=== PATIENT | female | born 1960 | race Caucasian/White ===

== ENCOUNTER 2017-09-19 06:14 | Day surgery (SDC) | payer BC ==
[2017-09-18 13:47] VITALS: BMI 26.6
[2017-09-19] VITALS (16 sets, daily range): BP systolic 125–164; BP diastolic 64–100; PULSE 66–86; RESP 11–28; Ht 172.7 cm; Wt 81.5 kg
[~2017-09-19] VITALS: Ht 172.7 cm; Wt 81.5 kg
[2017-09-19] MEDS ORDERED: LISI1TAB8 PO (06:42)
[2017-09-19] MEDS ORDERED: BUPIVACAINE 0.25%/EPI (SDV) 30 ML INJ ONE (08:06)
[2017-09-19] MEDS ORDERED: PROPOFOL 100 ML ONE (08:08)
[2017-09-19] MEDS ORDERED: morphine SULFATE/PF (10 MG/10 ML) INJ ONE (08:25)
[2017-09-19] MEDS ORDERED: DEXAMETHASONE 4 MG/ML 1 ML INJ ONE (08:45)
[2017-09-19] MEDS ORDERED: ROCURONIUM 50 MG INJ ONE (08:45)
[2017-09-19] MEDS ORDERED: TRIAMCINOLONE ACET 40 MG/ML INJ ONE (09:32)
[2017-09-19] MEDS ORDERED: SUGAMMADEX SODIUM 200 MG/2 ML VIAL IV ONE (09:33)
[2017-09-19] MEDS ORDERED: ONDANSETRON 4 MG INJ ONE (09:34)
[2017-09-19] MEDS ORDERED: CEFAZOLIN 1 GM INJ ONE (09:37)
[2017-09-19] MEDS ORDERED: LIDOCAINE 2% (SDV) 5 ML INJ ONE (09:38)
[2017-09-19] MEDS ORDERED: HYDROmorphONE (0.2 MG/ML) 10ML SYG IV PRN ×3 (10:00)
[2017-09-19] MEDS ORDERED: DIPHENHYDRAMINE 50 MG INJ IV PRN (10:00)
[2017-09-19] MEDS ORDERED: hydrALAzine 20 MG INJ IV PRN (10:00)
[2017-09-19] MEDS ORDERED: ONDANSETRON 4 MG INJ IV PRN (10:00)
[2017-09-19] MEDS ORDERED: MEPERIDINE 25 MG INJ IV PRN (10:00)
[2017-09-19] MEDS ORDERED: ALBUTEROL 0.083% (NEB) 2.5 MG/3 ML AMP HHN PRN (10:00)
[2017-09-19] MEDS ORDERED: KETOROLAC 30 MG INJ IV PRN (10:00)
[2017-09-19] MEDS ORDERED: LABETALOL HCL 20MG INJ IV PRN (10:00)
[2017-09-19] MEDS ORDERED: FENTAnyl 50 MCG/ML VIAL IV PRN ×3 (10:00)
[2017-09-19] MEDS ORDERED: METOCLOPRAMIDE 10 MG INJ IV PRN (10:00)
[2017-09-19] MEDS ORDERED: OXYCODONE/ACETAMINOPHEN (5/325) TAB PO PRN ×2 (10:00)
[2017-09-19] MEDS ORDERED: EPHEDrine SULFATE 50 MG/5 ML SYG IV PRN (10:00)
--- NOTE | 2017-09-21 15:19 | OPR ---
DATE OF OPERATION: 09/19/2017 PREOPERATIVE DIAGNOSIS: Medial meniscus tear of the left knee, partial thickness tear ACL left knee, chondromalacia of left knee, mild, patellofemoral area. POSTOPERATIVE DIAGNOSIS: Tear of the medial meniscus, left knee. 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 Chondromalacia type 2 medial femoral condyle, partial thickness tear, ACL left knee. OPERATION PERFORMED: 1. Arthroscopic partial medial meniscectomy, left knee. 2. Chondroplasty of medial femoral condyle, left knee. 3. Chondroplasty patellofemoral left knee. 4. Partial anterior synovectomies left knee. 5. Diagnostic arthroscopy of left knee. INDICATIONS: Preoperative assessment in this 57-year-old female indicated that she had injury of her left knee dancing on 04/01/2017 with ongoing symptoms. She had an MRI of the left knee. Study suggested chondromalacia patellofemoral tear of medial meniscus and also suggestion for partial thickness tear rotator cuff. Clinically, no significant anteromedial instability identified. Anterior drawer sign was 0 to 1+, positive. No linear laxity identified. OPERATIVE PROCEDURE: She was brought to the operating room, placed on operative table in supine position. General anesthesia administered by Dr. Valdo Blue. The patient received 1 gram Ancef intravenously. Tourniquet cuff was placed in proximal portion of the right thigh. Prepping and draping of left lower extremity was done. Evaluation of left knee under anesthesia did not suggest linear laxity or limitation of range of motion. Anterior drawer sign was 0 to 1+, positive, Karli test negative. Prepping and draping of left lower extremity was done. Exsanguination done using elastic Esmarch bandage. Tourniquet was inflated to 275 mmHg. Diagnostic arthroscopy of left knee was done introducing inflow from superomedial portal. A 30 degree angled arthroscope introduced into the left knee from inferolateral portal, the knee was inspected patellofemoral relation was normal. Synovitic changes were present and chondromalacia patella identified with most significant chondromalacia in that area involved femoral groove. Medial compartment revealed tear of posterior horn and mid segment of medial meniscus and chondromalacia grade II and medial femoral condylar identified. ACL was inspected. Continuity was present, but there was what appeared to be thinning of ACL. Lateral compartment showed no tear, or lateral meniscus tear, but synovitis was present. Operative arthroscopy included performing partial medial meniscectomy. This was done with basket punches, full radius shaver and Arthrocare. Remnant of medial meniscus was approximately 60% to 65% of this structure with stable base , chondroplasty of medial femoral condyle was done. Attention was then turned toward the patellofemoral area. Chondroplasty of patellofemoral, specifically the femoral groove was done with full radius shaver and Arthrocare. Anterior synovectomies were performed. No other pathology encountered. Knee was washed out and closure was done. Knee was injected with a combination of 30 mL of 0.25 % Marcaine and 40 mg of Kenalog and 5 mg Duramorph. Prior to application of Solano type dressing. She had no intraoperative or early postop complications. Tourniquet cuff pressure was 275 with time of 49 minutes. Selective photos also were taken. Copy was mounted in the patient's records. Dictated By: NAVIN BAUTISTA MD, SA/WOODY Conf#: [id number] DID#: [id number] BRANDAN
== END 2017-09-19 12:54 | disposition home or self-care (01) ==
LOC: SDS 06:14
PROVIDERS: ATTEND Orthopaedic Surgery
DX: S83.242A Other tear of medial meniscus, current injury, left knee, initial encounter (principal); M22.42 Chondromalacia patellae, left knee; I10 Essential (primary) hypertension; X58.XXXA Exposure to other specified factors, initial encounter; Y93.89 Activity, other specified; Y92.89 Other specified places as the place of occurrence of the external cause; Y99.8 Other external cause status
CPT/HCPCS: 29881; 84703; J0690; J1100; J1170; J2175; J2274; J2405; J3010